=== PATIENT | female | born 1975 | race Hispanic/Latino ===

== ENCOUNTER 2017-07-21 08:23 | Inpatient (IN) | payer BC, OTHER ==
[2017-07-21 09:05] LABS: Mean Corpuscular Hemoglobin 29.3 pg (27.0-31.0); Mean Corpuscular Volume 88.7 fl (81.0-99.0); Mean Platelet Volume 6.7 fL (7.4-10.4); Platelet Count 466 thou/uL (130-400); RBC Distribution Width 11.9 % (11.5-14.5); Red Blood Cell (RBC) Count 4.43 mill/uL (4.20-5.40); White Blood Cell (WBC) Count 20.9 thou/uL (4.8-10.8)
[2017-07-21] MEDS ORDERED: Morphine 4 MG/ML VIAL ONE ×2 (09:11→13:22)
[2017-07-21] MEDS ORDERED: Ondansetron ODT 8 MG TAB ONE (09:12)
[2017-07-21 09:25] LABS: ALT (SGPT) 31 U/L (8-55); AST (SGOT) 17 U/L (5-34); Albumin 4.2 g/dL (3.5-5.0); Alkaline Phosphatase 127 U/L (40-150); Anion Gap 15 mmol/L (10-20); BUN (Urea Nitrogen) 6 mg/dL (7.0-18.7); Bilirubin, Total 1.2 mg/dL (0.2-1.2); Calc. Creatinine Clearance 0 mL/min (70-130); Calcium 9.8 mg/dL (7.8-10.44); Carbon Dioxide 22 mmol/L (22-29); Chloride 103 mmol/L (98-107); Estimated GFR-MDRD Greater than 90; Globulin 4.5 g/dL (2.4-3.5); Glucose 104 mg/dL (70-105); Lipase 14 U/L (8-78); Potassium 4.1 mmol/L (3.5-5.1); Protein, Total 8.7 g/dL (6.0-8.3); Sodium 136 mmol/L (136-145)
[2017-07-21 09:36] LABS: Lymphocytes 8 % (21-51); MDiff Complete? YES; Monocytes 2 % (0-10); Neutrophil 90 % (42-75)
[2017-07-21 10:01] LABS: Bilirubin Negative (Negative); Blood, Urine Small (Negative); Clarity CLEAR (Clear); Glucose, Urine (Dipstick) Negative (Negative); Leukocyte Negative (Negative); Nitrite Negative (Negative); Protein, Urine (Dipstick) 30 mg/dL (Neg-Trace)
[2017-07-21 10:03] LABS: Bacteria/HPF None Seen HPF (None Seen); Hyaline Casts/LPF 0-3 HYALINE CAST LPF (0-3 Hyaline); Squamous Epithelial None Seen HPF (0-3); WBC/HPF None Seen HPF (0-3)
[2017-07-21 10:04] LABS: Pregnancy Test - Urine (BHCG) Negative (Negative); Pregu Control Background? CLEAR/WHITE (CLR/WHITE); Pregu Control Bar Appear? YES (CONTROL BAR); Specific Gravity 1.005 (1.002-1.036); Specific Gravity, Urine 1.005 (1.002-1.036)
--- NOTE | 2017-07-21 12:08 | CT ---
CT OF ABDOMEN AND PELVIS: DATE: 07/21/17. COMPARISON: None. HISTORY: Abdominal pain, epigastric pain. TECHNIQUE: Serial axial CT imaging at 5 mm intervals from the lung bases through the pubic symphysis with IV con trast. Coronal reformatted imaging obtained. FINDINGS: Imaged lung bases are unremarkable. No free intraperitoneal air is noted. There are subtle hypodense lesions within the liver, including a subtle 8-9 mm lesion on axial image 16 within the ventral aspect of the left lobe and a tiny hypodense left hepatic lobe lesion on image 15 measuring 6 mm. These lesions are too small to characterize. The spleen and gallbladder appear g rossly unremarkable aside from a nonspecific hypodense anterior splenic lesion measuring in the 9 mm range, also too small to characterize, likely representing a small cyst. Pancreas, adrenal glands, and left kidney are unremarkable. The right kidney contains a hypodense le derek in the posterolateral mid pole region measuring 3 cm, with Hounsfield units of 52. This could r epresent a complex cyst or a solid renal mass. There is small volume free fluid in the pelvic cul-de-sac. There is no evidence for bowel obstructio n. Evaluation of the bowel is limited on the basis of lack of contrast media. There is a complex tubular hypodense lesion which appears to emanate from the cecal apex and extend i nto the right hemipelvis inseparable from the region of the right adnexa/right ovary. No normal appe ndix is visualized. This complex hypodense tubular lesion measures at least 5 cm x 3.8 cm x 5 cm. The vascular structures of the abdomen/pelvis demonstrate no acute abnormality. Multiple small nodes are seen in the right lower quadrant mesentery. No acute osseous abnormality. IMPRESSION: 1. Complex hypoechoic lesion in the right lower quadrant. This is inseparable from the cecal apex a s well as the region of the right ovary/adnexa. This likely represents appendicitis with perforation and associated abscess. Abscess associated with pelvic inflammatory disease is a possibility. Surg ical consultation advised. 2. Hypodense hepatic and splenic lesions, too small to characterize. 3. Hypodense lesion within the right kidney, not consistent with a cyst. A followup renal ultrasoun d and/or CT examination with and without IV contrast is advised. Results called to Dr. Wong at 10:30 p.m. 07/21/17. CODE CR POS: [facility]
--- NOTE | 2017-07-21 13:09 | ULT ---
PELVIC ULTRASOUND: DATE: 07/21/17. HISTORY: Epigastric pain, complex hypodense right lower quadrant mass identified on recent CT examination. TECHNIQUE: Multiplanar, li scale sonographic imaging of the pelvis obtained with transabdominal and endovagina l imaging. The ovaries are assessed with color flow and spectral analysis. FINDINGS: Uterus measures 7.7 x 5.8 x 3.7 cm with a normal 3 mm endometrial stripe. Right ovary measures 2.9 x 2.9 x 3.7 cm and the left ovary measures 1.9 x 1.4 x 2.0 cm. Blood flow is documented within both o varies. There is moderate volume free fluid in the pelvic cul-de-sac. There is a posterior hypoechoic 7 x 8 mm lesion within the uterine body suggesting a small fibroid. There is a complex heterogeneously hypoechoic mass adjacent to the right ovary measuring at least 5.5 x 0.4 cm. This represents the complex heterogeneously hypodense lesion within this region on recent CT. It is nonspecific. IMPRESSION: Complex heterogeneously hypoechoic mass in the right adnexal region measuring 5.5 x 4.0 cm. This rep resents the abnormality seen on recent CT. This could represent abscess/phlegmon associated with per forated appendicitis. Tubo-ovarian abscess or neoplastic adnexal mass is less likely. Clinical magalie elation is essential. Recommend correlation with quantitative beta HCG to exclude that this is related to ectopic . CODE T POS: [facility]
[2017-07-21] MEDS ORDERED: ISOVUE-370 76%-LOCM 1 ML ONE (14:11)
[2017-07-21] MEDS ORDERED: Ondansetron HCl/PF 4 MG/2 ML Vial IVP PRN (14:20)
[2017-07-21] MEDS ORDERED: Doxycycline 100 MG CAP PO SCH (15:00)
[2017-07-21 17:43] VITALS: BMI 28.3
[2017-07-21] MEDS: Lactated Ringer's 1,000 ML IV SCH (17:44)
--- NOTE | 2017-07-21 17:45 | CON ---
DATE OF CONSULTATION: 07/21/2017 REFERRING PHYSICIAN: Dr. Bush, ER physician. CHIEF COMPLAINT: Abdominal pain. HISTORY OF PRESENT ILLNESS: The patient is a 42-year-old G2, P2 female who is presenting to the ER today with epigastric and right lower quadrant pain since x6 days, a 2-day history of subjective fevers and a 4-day history of anorexia. The patient reports that she began having a supraumbilical/epigastric pain Saturday night, prompting a visit to her physician on Saturday where she was diagnosed with possible gastritis versus early appendicitis. She was given medication that she reports helped her. She felt like it helped her for a couple days and then began having stronger abdominal pains and return back to her physician on where she was given medication for constipation which she reports had been present for nearly a week and was given instructions to go the emergency room if she continues to have pain. The patient reports that she has not had an appetite since , has had no desire to eat. Has had fevers at night with what sounds like rigors and sweats, though no objective temperature was taken. The patient denies any history of sexually transmitted infections. She has had one sexual partner her entire life and is in a stable healthy safe monogamous relationship. She has no concerns that her partner is unfaithful and she has not had other partners. The patient denies any history of other pelvic infections apart from what sounds like bacterial vaginosis many years ago that she would get in concurrence with her periods. Patient emphasized that the pain began in the epigastric region/super umbilical and seemed to migrate to that right lower quadrant. She denies any pain beginning in her pelvic region. Her last menstrual period was on 07/16/2017 couple days after her epigastric pain started and does report that her bleeding was less than expected, though she does admit her periods are irregular and did not come the same time every month. Imaging was obtained in the emergency room with the patient prior to my evaluation. A CT scan showed a complex hypoechoic lesion in the right lower quadrant inseparable from the cecal appendix and the region of the right ovary and adnexa that may represent appendicitis with perforation or possibly abscess associated with PID. Ultrasound was performed also and demonstrates the same complex heterogeneous hypoechoic mass in the right adnexa that could represent abscess phlegmon associated with perforated appendicitis or tubo-ovarian abscess. The patient today reports nausea without vomiting, anorexia, this right lower quadrant pain. PAST MEDICAL HISTORY: History of hyperlipidemia. PAST SURGICAL HISTORY: She has had prior x1. SOCIAL HISTORY: Denies drug, alcohol or tobacco use. MEDICATIONS: She is on Nexium, recently began for suspected gastritis and MiraLax for episodic constipation. ALLERGIES: No known drug allergies. REVIEW OF SYSTEMS: Again, patient reports fever at home. Denies headache, chest pain, shortness of breath. Has nausea without vomiting. Has abdominal pain. Denies foul vaginal discharge or bleeding and other pertinent in the HPI. PHYSICAL EXAMINATION: VITAL SIGNS: Blood pressure is 139/85, pulse of 99, respiratory rate is 16, temperature 98.2. The pain is 7/10, satting 98% on room air. GENERAL: She appears to be in no acute distress. She is alert and oriented, cooperative and pleasant to interact with. HEAD: Normocephalic, atraumatic. LUNGS: Clear to auscultation bilaterally. HEART: Regular rate and rhythm. ABDOMEN: Soft but it is tender to palpation in the mid to right lower quadrants. She has pain radiating to the right with left lower quadrant palpation. EXTREMITIES: Nontender, nonedematous. PELVIC: Vulva is without mass lesions or erythema. Vaginal exam by speculum does not demonstrate any purulent discharge. Cervix appears to be normal with closed os and mucousy. Clear mucousy discharge from the external os. On bimanual exam, patient has tenderness on the right lower quadrant. She has no tenderness to light palpation to the cervix, deep palpation of the cervix and uterus. The patient is tender midline and to the right. LABORATORY DATA: CBC shows a white count of 20.9, hemoglobin of 13.2, hematocrit 39.3, platelets of 466,000, neutrophil percentage at 90. Sodium 136 , potassium 4.1, chloride 103, BUN is 6, creatinine 0.66, total bilirubin of 1.2 , AST of 17, ALT of 31, lipase of 14. Urine shows a specific gravity of 1.005 with trace ketones, a pH of 8 with blood. ASSESSMENT: The patient is a 42-year-old female with right lower quadrant pain for the last week with a differential of appendicitis versus TOA. Patient does not have any red flags pointing to PID or TOA on history as the patient is in a longstanding monogamous relationship, has never had any history of infectious process of that nature. Denies explicitly gonorrhea and chlamydia and other like pelvic infections. Patient's history is suggestive of appendicitis with a supraumbilical epigastric pain being the onset of her symptoms with now anorexia , subjective fevers and this worsening right lower quadrant tenderness. General Surgery has just called me who has also evaluated the patient and does not believe the patient is a surgical candidate at this time given the longstanding presence of these symptoms. We will be admitting this patient and currently following her. She will be placed on Zosyn and doxycycline for anaerobic coverage and will be reimaged in a couple days. If the patient acutely worsens the need for surgery can be reassessed. If she improves clinically, we will continue antibiotics as indicated. Thanks to General surgery for their assistance. SHEA
[2017-07-21] MEDS: Piperacillin/Tazobactam 3.375 GM in Sodium Chloride 0.9% 100 ML IVPB SCH (18:09)
[2017-07-21] MEDS: Acetaminophen 1,000 MG in Premix Bag 1 BAG IVPB PRN (20:50)
[2017-07-21] MEDS: Doxycycline 100 MG CAP PO SCH (20:50)
[2017-07-21] MEDS: Morphine 4 MG/ML VIAL SLOW IVP PRN (20:50)
[2017-07-22] MEDS: Lactated Ringer's 1,000 ML IV SCH ×4 (00:37→20:20)
[2017-07-22] MEDS: Piperacillin/Tazobactam 3.375 GM in Sodium Chloride 0.9% 100 ML IVPB SCH ×4 (00:37→18:25)
--- NOTE | 2017-07-22 00:52 | CON ---
DATE OF CONSULTATION: 07/21/2017 CHIEF COMPLAINT: Abdominal pain. HISTORY OF PRESENT ILLNESS: Ms. Gavin is a 42-year-old woman with a 1-week history of epigastric pain, radiating down her right side. She states that she came to the emergency room, because she was worried that she might have an ulcer. Her family tells me that she went to the doctor on Saturday of this week and again on Saturday, because of similar symptoms. It is unclear whether any lab work or im aging was done, but she was told to go to the ER if the pain did not get better due to concern for po ssible appendicitis. She has not had much of an appetite and has had some mild nausea, but no vomiti ng. She denies any fevers or chills. She has no history of pelvic infection or irregular periods. She was constipated last week and was given some laxatives to take. She had not had any bowel moveme nts since Saturday, but after taking a laxative yesterday, she had 3 bowel movements. She has not had any diarrhea or other GI issues. PAST MEDICAL HISTORY: Hyperlipidemia. FAMILY HISTORY: Hypertension and diabetes. SOCIAL HISTORY: She does not smoke, drink, or use illicit drugs. ALLERGIES: She has no known drug allergies. MEDICATIONS: She does not take any medications chronically. She was started on Nexium earlier this week for suspected gastritis and she did take MiraLax yesterday for constipation. PHYSICAL EXAMINATION: VITAL SIGNS: Temperature 98.8, respirations 16, heart rate 82, blood pressure 122/84, 96% saturated on room air. GENERAL: Reveals a healthy-appearing woman in no acute distress. She is not flushed or toxic in laney earance. She is not jaundiced or icteric. HEENT: Unremarkable. NECK: Supple, without lymphadenopathy or thyroid nodules. HEART: Regular in its rate and rhythm without murmurs, rubs, or gallops. LUNGS: Clear to auscultation bilaterally. ABDOMEN: Soft and nondistended. She is tender to palpation, more in the lower abdomen than the uppe r abdomen and more on the right than the left. No palpable masses or hernias. She does have some vo luntary guarding, but is not rigid. She has possible rebound tenderness, although somewhat difficult to elicit. EXTREMITIES: Warm and well perfused without edema. NEUROLOGIC: No focal deficits. PSYCHIATRIC: Alert, oriented, and appropriate. LABORATORY AND X-RAY FINDINGS: White count is elevated at 20,000, platelets are 466, hematocrit 39.3 . She does have a left shift with 90% neutrophils. Electrolytes are unremarkable. LFTs are normal. Urine shows a small amount of blood and trace ketones, 30 protein, but is otherwise clear. Urine p regnancy test is negative. CT images are reviewed and I agree with the written report. She has a co mplex phlegmonous mass in the right lower quadrant extending from the cecal cap to the right adnexa. It is not really separable from either structure and her appendix is not definitely seen. It appear s loculated. Pelvic ultrasound revealed basically the same findings. 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 The patient is clinically stable and not septic. She is not a surgical candidate for appendectomy, as this would require likel y a right colectomy and right oophorectomy and would carry significant risks for damage to other near by structures including bowel and ureter. If this is perforated appendicitis, it will likely continu e to mature into an abscess. Given its location, I doubt that it will be percutaneously drainable, b ut it could probably be drained laparoscopically once it is more defined. If this is a tubo-ovarian abscess, it may well respond to IV antibiotics. So, after talking with Dr. Montana of [facility], I pref er to try IV antibiotics first with close observation. If the patient's clinical condition deteriora saul, she will be taken to the operating room, but if she improves, then we can follow up with imaging in a few days. The patient and her family understand are in agreement with the care plan. All thei r questions were answered.
[2017-07-22] MEDS: Acetaminophen 1,000 MG in Premix Bag 1 BAG IVPB PRN ×3 (03:07→18:25)
[2017-07-22] MEDS: Morphine 4 MG/ML VIAL SLOW IVP PRN ×2 (03:07→12:39)
[2017-07-22 05:03] LABS: #Eosinphils 0.1 thou/uL (0.0-0.7); #Lymphocytes 1.1 thou/uL (1.20-3.40); #Monocytes 1.2 thou/uL (0.11-0.59); #Neutrophils 16.4 thou/uL (1.40-6.50); %Basophils 0.1 % (0.0-1.0); %Eosinophils 0.4 % (0.0-10.0); %Lymphocytes 5.7 % (21.0-51.0); %Monocytes 6.4 % (0.0-10.0); %Neutrophils 87.4 % (42.0-75.0); Hemoglobin 11.1 g/dL (12.0-16.0); Mean Corpuscular HGB CONC 33.2 g/dL (32.0-36.0); Mean Corpuscular Hemoglobin 29.5 pg (27.0-31.0); Mean Platelet Volume 6.5 fL (7.4-10.4); Platelet Count 404 thou/uL (130-400); RBC Distribution Width 11.9 % (11.5-14.5); Red Blood Cell (RBC) Count 3.75 mill/uL (4.20-5.40); White Blood Cell (WBC) Count 18.8 thou/uL (4.8-10.8)
[2017-07-22] MEDS: Doxycycline 100 MG CAP PO SCH ×2 (09:05→20:19)
--- NOTE | 2017-07-22 11:15 | PDOC.GSPN ---
Surgery Progress Note: Subj - Subjective Narrative: Patient feels better today. Her pain has improved although she feels a little bloated. Afebrile with normal vital signs. White count is about the same. It has gone from 20 down to 18 which is not a significant change. Her abdomen is soft and nondistended. She is still a little tender in the lower abdomen but less than yesterday. Assessment/plan: Pelvic abscess, chronic perforated appendicitis versus tubo- ovarian. Clinically she is stable to improved on IV antibiotics and not septic so we will continue with conservative management. Consider repeat CT tomorrow or the next day. Surgery Progress Note: Obj - Vital signs Vital signs: Vital Signs - Most Recent Temp Pulse Resp BP Pulse Ox 97.7 F 69 14 113/75 98 07/22/17 09:00 07/22/17 09:00 07/22/17 09:00 07/22/17 07:52 07/22/17 07:52 Surgery Progress Note: Results - Labs Result Diagrams: 07/22/17 04:43 07/21/17 08:46 Lab results: Laboratory Results - last 24 hr 07/22/17 04:43 WBC 18.8 H RBC 3.75 L Hgb 11.1 L Hct 33.4 L MCV 89.0 MCH 29.5 MCHC 33.2 RDW 11.9 Plt Count 404 H MPV 6.5 L Neutrophils % 87.4 H Lymphocytes % 5.7 L Monocytes % 6.4 Eosinophils % 0.4 Basophils % 0.1 Neutrophils # 16.4 H Lymphocytes # 1.1 L Monocytes # 1.2 H Eosinophils # 0.1 Basophils # 0.0
--- NOTE | 2017-07-22 13:19 | PRG ---
DATE OF SERVICE: 07/22/2017 SUBJECTIVE: The patient is feeling better this morning. She is tolerating clear liquids. OBJECTIVE: VITAL SIGNS: She has been afebrile since admission. Temperature 98.3, blood pressure 121/83, pulse 70, respirations 14. ABDOMEN: Her abdomen is nondistended. She is tender to deep palpation in the right lower quadrant. ASSESSMENT: Chronic appendicitis versus tubo-ovarian abscess less likely. PLAN: I agree with Dr. Dong's plan to continue Zosyn and doxycycline and observe for clinical imp rovement. She is scheduled to be imaged in the next day or two to reevaluate her abscess. I did spe ak with the patient regarding this plan using the interpretation line and all questions are answered.
[2017-07-22] MEDS: Docusate 100 MG CAP PO SCH (20:19)
[2017-07-23] MEDS: Piperacillin/Tazobactam 3.375 GM in Sodium Chloride 0.9% 100 ML IVPB SCH ×4 (01:01→18:36)
[2017-07-23] MEDS ORDERED: Acetaminophen 1,000 MG in Premix Bag 1 BAG IVPB SCH (03:45)
[2017-07-23] MEDS: Lactated Ringer's 1,000 ML IV SCH ×3 (07:32→18:35)
[2017-07-23] MEDS: Docusate 100 MG CAP PO SCH ×2 (09:09→20:30)
[2017-07-23] MEDS: Morphine 4 MG/ML VIAL SLOW IVP PRN (09:09)
[2017-07-23] MEDS: Doxycycline 100 MG CAP PO SCH ×2 (09:09→20:31)
[2017-07-23] MEDS ORDERED: traMADol HCl 50 MG TAB PO PRN ×2 (09:20)
[2017-07-23 11:02] LABS: #Eosinphils 0.1 thou/uL (0.0-0.7); #Lymphocytes 2.3 thou/uL (1.20-3.40); #Monocytes 0.9 thou/uL (0.11-0.59); #Neutrophils 13.1 thou/uL (1.40-6.50); %Basophils 0.2 % (0.0-1.0); %Eosinophils 0.5 % (0.0-10.0); %Lymphocytes 14.1 % (21.0-51.0); %Monocytes 5.2 % (0.0-10.0); Hemoglobin 12.2 g/dL (12.0-16.0); Mean Corpuscular Hemoglobin 28.6 pg (27.0-31.0); Mean Corpuscular Volume 89.5 fl (81.0-99.0); Mean Platelet Volume 6.5 fL (7.4-10.4); Platelet Count 462 thou/uL (130-400); RBC Distribution Width 12.2 % (11.5-14.5); Red Blood Cell (RBC) Count 4.26 mill/uL (4.20-5.40); White Blood Cell (WBC) Count 16.4 thou/uL (4.8-10.8)
[2017-07-23] MEDS ORDERED: ISOVUE-370 76%-LOCM 1 ML ONE (11:02)
[2017-07-23 11:26] LABS: Anion Gap 12 mmol/L (10-20); BUN (Urea Nitrogen) 4 mg/dL (7.0-18.7); Calc. Creatinine Clearance 133 mL/min (70-130); Calcium 8.8 mg/dL (7.8-10.44); Carbon Dioxide 24 mmol/L (22-29); Chloride 105 mmol/L (98-107); Estimated GFR-MDRD Greater than 90; Glucose 98 mg/dL (70-105); Potassium 3.9 mmol/L (3.5-5.1); Sodium 137 mmol/L (136-145)
[2017-07-23] MEDS: Acetaminophen 1,000 MG in Premix Bag 1 BAG IVPB SCH ×2 (12:00→17:49)
--- NOTE | 2017-07-23 12:58 | PDOC.GSPN ---
Surgery Progress Note: Subj - Subjective Narrative: Pain is worse this afternoon. Hurts to walk TTP BLQ> epig/BUQ, no guarding/rigidity WBC slightly down, Afebrile w normal vitals A/P) Appendiceal abscess vs TOA. Labs slightly better but pt c/o more pain. Will repeat CT. Will likely need laparoscopic drainage. NPO after CT. Surgery Progress Note: Obj - Vital signs Vital signs: Vital Signs - Most Recent Temp Pulse Resp BP Pulse Ox 98.2 F 85 15 97/67 95 07/23/17 11:47 07/23/17 11:47 07/23/17 11:47 07/23/17 11:47 07/23/17 11:47 Surgery Progress Note: Results - Labs Result Diagrams: 07/23/17 10:48 07/23/17 10:48 Lab results: Laboratory Results - last 24 hr 07/23/17 07/23/17 10:48 10:48 WBC 16.4 H RBC 4.26 Hgb 12.2 Hct 38.1 MCV 89.5 MCH 28.6 MCHC 32.0 RDW 12.2 Plt Count 462 H MPV 6.5 L Neutrophils % 80.0 H Lymphocytes % 14.1 L Monocytes % 5.2 Eosinophils % 0.5 Basophils % 0.2 Neutrophils # 13.1 H Lymphocytes # 2.3 Monocytes # 0.9 H Eosinophils # 0.1 Basophils # 0.0 Sodium 137 Potassium 3.9 Chloride 105 Carbon Dioxide 24 Anion Gap 12 BUN 4 L Creatinine 0.62 Estimated GFR (MDRD) Greater than 90 Glucose 98 Calcium 8.8
--- NOTE | 2017-07-23 16:51 | CT ---
CT ABDOMEN AND PELVIS WITH IV CONTRAST: 07/23/17 Multiple axial tomograms obtained through the abdomen and pelvis with IV enhancement. INDICATIONS: Right lower quadrant abscess. Appendiceal abscess versus tubo-ovarian abscess. Comparison made to CT of 07/21/17. FINDINGS: Lung bases clear. Liver again reveals two nonspecific low density foci, one in the left lobe and the other in the right lobe. These were described previously and are unchanged. The small cystic lesion i n the anterior spleen is also stable. The pancreas is unremarkable. The complex lesion involving the lateral right kidney is again noted. This lesion shows some internal enhancement and possible septati on and is suspicious requiring close followup. Small bowel loops are normal caliber proximally, but do show mild dilatation in the mid and distal sm all bowel. An inflammatory process right lower quadrant involving the cecum and terminal ileum again noted. There is low lying cecum which extends into the right adnexa as noted previously. This inflamm atory process appears to be producing inflammatory change in the terminal ileum with apparent luminal narrowing which appears to result in mild small bowel obstruction explaining the mildly dilated mid and distal small bowel loops. Inflammatory process in the right lower quadrant is again seen although the fluid dense regions within this process on the prior exam are smaller today. This appears most c onsistent with appendicitis and appendiceal abscess, although it does extend to the adnexa and tubo-o varian etiology cannot be completely excluded although considered less likely. The uterus appears unr emarkable. IMPRESSION: 1. Inflammatory process in the right lower quadrant again noted. Fluid dense areas have decrease d in size indicating interval improvement. There is now more of a phlegmonous inflammatory process no nicole, although some areas of low attenuation remain. This does involve the terminal ileum and there is probable luminal narrowing and resulting small bowel obstruction resulting in small bowel dilatatio n of the mid and distal small bowel. 2. Complex lesion involving the right kidney again noted. 3. Nonspecific indeterminate low density lesions in the liver again noted. 4. Small splenic cystic lesion again noted and stable. POS: [facility]
[2017-07-23] MEDS: Lactinex Tablet PO SCH (20:31)
--- NOTE | 2017-07-23 23:13 | PRG ---
DATE OF SERVICE: 07/23/2017 This is hospital day #3 for admission for pelvic abscess. The patient has been on Zosyn and doxycycl ine since admission. General Surgery is following closely along with the [facility]. Patient was evaluated this morning by myself, at which time patient reports she was having quite a bit of pain. She has been tolerating her liquid diet. She has denied any fever, but is reporting so me diarrhea. PHYSICAL EXAMINATION: VITAL SIGNS: Today, over the last 24 hours, the patient has remained afebrile. Current temperature at the time of evaluation was 98.2, pulse of 81, respiratory rate 14, satting 98% on room air and a b lood pressure of 116/74. GENERAL: She appeared to be in no acute distress. She did appear uncomfortable. ABDOMEN: Tender, perhaps a little more tender than on initial exam at time of admission, particularl y on the left side where she previously had no tenderness. LABORATORY STUDIES: A CBC was ordered a little later in the morning by Dr. Dong and noted to have a significant decrease in her white count from time of admission; it is now 16.4 from 20,000. A CT scan was also performed later this afternoon per Dr. Dong, which reports interval improvement from the previous CT scan and is also demonstrating some inflammation at the terminal ileum and luminal n arrowing, resulting in a mild small-bowel obstruction. ASSESSMENT AND PLAN: Patient has been tolerating liquids throughout the day. She did report one epi sode of vomiting this morning after taking some pain medication. Dr. Dong's note from earlier tod ay indicated the possible need for surgery and was made n.p.o. at the time of the CT scan; however, t his evening, the patient has been placed back on a liquid diet and per nursing staff it has been comm unicated that Dr. Dong is holding off surgery at this time due to the overall improvement of Ms. Shy castillo and possible resolution with antibiotics alone on this inflammation and small bowel obstructi on. Patient this evening reports that she is feeling much better. She had not required much pain me dication. She is tolerating her liquids well. ASSESSMENT AND PLAN: The patient is a 42-year-old female with a pelvic abscess and a mild small brook l obstruction due to inflammation of the terminal ileum. Patient will continue on Zosyn and doxycycl ine, which appears to be helping Ms. Gavin improve from this pelvic infection evidenced by remaini ng afebrile and improving white count and improving pain. As patient is tolerating liquids well, I w ill be decreasing her IV fluids to 50 mL an hour, primarily just to keep the IV patent and open for I V antibiotics. The patient has x-rays scheduled in the morning. I will assume for further followup on the small-bowel obstruction seen on CT scan. Thank you to Dr. Dong for her assistance in the care of Ms. Gavin.
[2017-07-24] MEDS: Acetaminophen 1,000 MG in Premix Bag 1 BAG IVPB SCH ×4 (00:13→16:59)
[2017-07-24] MEDS: Piperacillin/Tazobactam 3.375 GM in Sodium Chloride 0.9% 100 ML IVPB SCH ×5 (00:14→23:46)
[2017-07-24] MEDS: Lactated Ringer's 1,000 ML IV SCH ×5 (00:15→23:46)
[2017-07-24 04:21] LABS: Chlamydia by PCR Not Detected (NotDetected); GC by PCR Not Detected (NotDetected)
[2017-07-24 05:19] LABS: Anion Gap 10 mmol/L (10-20); BUN (Urea Nitrogen) Less than 4 mg/dL (7.0-18.7); Calc. Creatinine Clearance 130 mL/min (70-130); Calcium 8.3 mg/dL (7.8-10.44); Carbon Dioxide 26 mmol/L (22-29); Chloride 106 mmol/L (98-107); Estimated GFR-MDRD Greater than 90; Glucose 90 mg/dL (70-105); Potassium 3.7 mmol/L (3.5-5.1); Sodium 138 mmol/L (136-145)
[2017-07-24 05:20] LABS: #Eosinphils 0.2 thou/uL (0.0-0.7); #Lymphocytes 1.8 thou/uL (1.20-3.40); #Monocytes 0.6 thou/uL (0.11-0.59); #Neutrophils 6.4 thou/uL (1.40-6.50); %Basophils 0.3 % (0.0-1.0); %Eosinophils 2.4 % (0.0-10.0); %Lymphocytes 20.3 % (21.0-51.0); %Monocytes 6.2 % (0.0-10.0); %Neutrophils 70.8 % (42.0-75.0); Hemoglobin 10.7 g/dL (12.0-16.0); Mean Corpuscular HGB CONC 33.3 g/dL (32.0-36.0); Mean Corpuscular Volume 90.3 fl (81.0-99.0); Mean Platelet Volume 6.7 fL (7.4-10.4); Platelet Count 417 thou/uL (130-400); RBC Distribution Width 12.1 % (11.5-14.5); Red Blood Cell (RBC) Count 3.56 mill/uL (4.20-5.40); White Blood Cell (WBC) Count 9.1 thou/uL (4.8-10.8)
[2017-07-24] MEDS ORDERED: Docusate 100 MG CAP PO PRN (08:00)
--- NOTE | 2017-07-24 08:13 | PDOC.EVN ---
Event Note - Event Note Event Note: OBGYN Day 4 Admitted 07/21...pelvic abscess Clinically improved. case reviewed with Dr Montana this AM, as I assumed call. Care mainly per Gen Surgery This AM...WBC at 9-10 Meds: Benjamin/Olaf Follow with Dr Dong
[2017-07-24] MEDS: Doxycycline 100 MG CAP PO SCH ×2 (08:25→20:55)
[2017-07-24] MEDS: Lactinex Tablet PO SCH ×2 (08:25→20:55)
--- NOTE | 2017-07-24 10:26 | RAD ---
ABDOMEN TWO VIEWS: HISTORY: Abdominal pain. Question small bowel obstruction. CORRELATION: CT from 07/23/2017. FINDINGS: Scattered stool and gas are seen in the colon. There are gas-filled, dilated loops of small bowel se en in the mid abdomen. These do exhibit differential air-fluid levels on the upright study, and thes e findings would indicate partial small bowel obstruction. No free air identified on the upright vie w. IMPRESSION: Gas-filled dilated loops of small bowel, which exhibit differential air-fluid levels on the upright s tudy. There is scattered stool and gas seen in the colon. POS: [facility]
--- NOTE | 2017-07-24 14:22 | PDOC.GSPN ---
Surgery Progress Note: Subj - Subjective Narrative: Patient feels much better today. She denies nausea and states that her appetite has returned. She is passing flatus and having bowel movements. Afebrile with normal vital signs. White count has declined. CT last night showed improvement in the inflammatory process which is now looking more phlegmon at this. She does have some reactive inflammation of the terminal ileum and some dilation of the small bowel proximal to this worrisome for partial small bowel traction. Follow-up KUB this morning still shows some dilated loops of bowel but contrast has passed into the colon. She is less tender to palpation in the lower abdomen. Assessment/plan: Clinically improving on antibiotics. Partial small bowel obstruction seen on CT scan but tolerating clear liquids. We will continue to follow this with x-ray and exam. No drainable discrete abscess. I expect that the partial extraction will improve as the antibiotics continued to work, but if she worsens we would try bowel decompression and nothing by mouth status for a few days. Surgical intervention would likely necessitate resection of the phlegmon and right colon and right ovary so we will try to avoid that. Surgery Progress Note: Obj - Vital signs Vital signs: Vital Signs - Most Recent Temp Pulse Resp BP Pulse Ox 97.8 F 64 14 104/70 97 07/24/17 12:00 07/24/17 12:00 07/24/17 12:00 07/24/17 12:00 07/24/17 12:00 Surgery Progress Note: Results - Labs Result Diagrams: 07/24/17 04:38 07/24/17 04:38 Lab results: Laboratory Results - last 24 hr 07/24/17 07/24/17 04:38 04:38 WBC 9.1 RBC 3.56 L Hgb 10.7 L Hct 32.1 L MCV 90.3 MCH 30.0 MCHC 33.3 RDW 12.1 Plt Count 417 H MPV 6.7 L Neutrophils % 70.8 Lymphocytes % 20.3 L Monocytes % 6.2 Eosinophils % 2.4 Basophils % 0.3 Neutrophils # 6.4 Lymphocytes # 1.8 Monocytes # 0.6 H Eosinophils # 0.2 Basophils # 0.0 Sodium 138 Potassium 3.7 Chloride 106 Carbon Dioxide 26 Anion Gap 10 BUN Less than 4 L Creatinine 0.63 Estimated GFR (MDRD) Greater than 90 Glucose 90 Calcium 8.3
--- NOTE | 2017-07-24 17:43 | PDOC.EVN ---
Event Note - Event Note Event Note: @1005 Location: 3331 Patient seen at bedside. Antibiotics seem to be resolving the inflammatory process. patient clinically improved. Dr hudson's note and plan of care to continue medical intervention has been reviewed. Will follow.
[2017-07-25] MEDS: Piperacillin/Tazobactam 3.375 GM in Sodium Chloride 0.9% 100 ML IVPB SCH ×3 (06:02→18:14)
--- NOTE | 2017-07-25 06:49 | PDOC.EVN ---
Event Note - Event Note Event Note: OBGYN Note HD #5 Patient with no new issues Vitals reviewed..afebrile. Nonew labs Pelvic abscess responding to IV Zosyn/Doxy. Primary medical care as [er Dr Dong (Gen Surg).
[2017-07-25] MEDS: Lactated Ringer's 1,000 ML IV SCH ×4 (07:20→20:25)
[2017-07-25] MEDS: Doxycycline 100 MG CAP PO SCH ×2 (08:51→20:18)
[2017-07-25] MEDS: Lactinex Tablet PO SCH ×2 (08:51→20:18)
--- NOTE | 2017-07-25 12:16 | RAD ---
ABDOMEN 2 VIEWS: HISTORY: Partial small bowel obstruction. COMPARISON: Radiograph of the prior day. FINDINGS: Mildly distended large bowel. A few air fluid levels in the left upper quadrant of the abdomen. There is some contrast in which may be out of the confines of the ascending colon. IMPRESSION: Contrast possibly outside the confines of the ascending colon may be within a collection. POS: [facility]
--- NOTE | 2017-07-25 14:01 | PDOC.GSPN ---
Surgery Progress Note: Subj - Subjective Narrative: Patient feels much better today. She states she has no pain. Her appetite is normal and she is tolerating clear liquids without nausea or bloating. Has had bowel movements and passed gas. Abdomen is soft with very minimal lower abdominal tenderness. No rigidity rebound or guarding. KUB showed improvement in small bowel dilation and now looks pretty normal. Pelvic abscess of unclear etiology. This could be appendiceal or ovarian in origin but is responding to antibiotics. She had mildly symptomatic partial small bowel obstruction which appears to have resolved. We can advance her diet and if she tolerates this she can be switched to oral antibiotics and likely discharged home to complete 2 weeks treatment. She can follow up with me as an outpatient. I'm going to be out of town tomorrow and the following week but Dr. Hewitt and Dr. Khoury are going to be covering in my absence. Surgery Progress Note: Obj - Vital signs Vital signs: Vital Signs - Most Recent Temp Pulse Resp BP Pulse Ox 97.9 F 64 14 116/79 99 07/25/17 11:12 07/25/17 11:12 07/25/17 11:12 07/25/17 11:12 07/25/17 11:12 Surgery Progress Note: Results - Labs Result Diagrams: 07/24/17 04:38 07/24/17 04:38
[2017-07-26] MEDS: Piperacillin/Tazobactam 3.375 GM in Sodium Chloride 0.9% 100 ML IVPB SCH ×2 (00:25→05:59)
--- NOTE | 2017-07-26 06:45 | PDOC.EVN ---
Event Note - Event Note Event Note: Resting comfortably. No c/o. VSS Remains AF. Abdomen is soft and NT. No guarding or rebound. Dr. Dong's note from yesterday reviewed; plan is to advance diet and switch to PO ABX.
[2017-07-26] MEDS: Lactated Ringer's 1,000 ML IV SCH (07:46)
[2017-07-26] MEDS ORDERED: metroNIDAZOLE 500 MG TAB PO SCH (09:00)
--- NOTE | 2017-07-26 09:02 | PDOC.EVN ---
Event Note - Event Note Event Note: OBGYN: Call assumed this AM from DR Purcell. Plan reviewed with him. As per Dr Dong ( Gen Surgery), plan is to change to oral ABX and slowly advance diet. Still improved. DC Zosyn...change to Flagyl. Meds will be flagyl and Doxy po today. Prepare for DC. Dr Ramirez is coveraging for [facility] this wekend.
[2017-07-26] MEDS: Lactinex Tablet PO SCH (09:47)
[2017-07-26] MEDS: Doxycycline 100 MG CAP PO SCH (09:47)
[2017-07-26 15:33] VITALS: BP 117/74; TEMP 97.7
--- NOTE | 2017-07-26 16:45 | PDOC.EVN ---
Event Note - Event Note Event Note: OBGYN DISCHARGE NOTE Admission: 07/21/17 Discharge: 07/26/17 LOS: 5 days Diagnosis: Pelvic abscess Services [facility] ([facility] Hospital course: In brief, this patient was admitted by the OBGYN Hospitalist team for suspected pelvic infection. During the initial evaluation, the working diagnosis progressed to possible appendiceal related abcess. General Surgery ([facility]) was primary physician for care with ObGyn being secondary. Initial small bowel obstruction resolved, as did other symptoms, with broad spectrum antibiotics. IV antibiotics were zosyn and oral doxy. She was tolerating regular diet by day of discharge. I evaluated the patient on the morning of day of discharge and found her to be clinically improved with labs returned to normal. Dr Ramirez cleared the patient for discharge in the afternoon (approx 1630) on . I will send her home to continue 7 days of oral doxy and flagyl. She will follow up with general surgery as directed by then. 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
--- NOTE | 2017-07-26 16:54 | PRG ---
DATE OF SERVICE: 07/26/2017 SUBJECTIVE: This is hospital day #5 of Ms. Gavin. She is tolerating a regular diet. Bowels are moving well. She notes mild right-sided abdominal discomfort. She denies vomiting. PHYSICAL EXAMINATION: VITAL SIGNS: She is afebrile, pulse 69, blood pressure 117/74. LUNGS: Clear to auscultation. ABDOMEN: Soft with no focal tenderness and normoactive bowel sounds. LABORATORY STUDIES: Her CBC was essentially normal 2 days ago with a white blood cell count of 9.1, hemoglobin of 10.7. ASSESSMENT AND PLAN: Patient with resolved/resolving tubo-ovarian abscess versus appendiceal abscess . Either way, this has resolved appropriately with a course of IV antibiotics. She is appropriate f or discharge home at this time. Dr. Rod has already written prescriptions for doxycycline and Flag yl and I agree that these are appropriate antibiotics. She does not appear to have any significant d iscomfort, does not require any pain medication for discharge at this time. She may eat a regular di et, ambulate frequently, and take her antibiotics and follow up with Dr. Dong in 10 days.
--- NOTE | 2017-07-26 16:54 | PDOC.EVN ---
Event Note - Event Note Event Note: Referral to [facility] completed and faxed
== END 2017-07-26 17:27 | disposition home or self-care (01) | DRG 758 ==
LOC: ERS 08:23 → SURG A 14:59
PROVIDERS: ADMIT Obstetrics & Gynecology; ATTEND Obstetrics & Gynecology
DX: N73.9 Female pelvic inflammatory disease, unspecified (principal); K56.609 Unspecified intestinal obstruction, unspecified as to partial versus complete obstruction; E78.5 Hyperlipidemia, unspecified; K36 Other appendicitis
CPT/HCPCS: 36415; 74019; 74177; 76856; 80048; 80053; 81003; 81015; 81025; 83690; 85025; 87480; 87491; 87510; 87591; 87660; 93005; 96365; 96375; 96376; J0131; J2270; J2405; J2543; J7050

== ENCOUNTER 2017-09-09 13:48 | Outpatient (CLI) | payer BC ==
[~2017-09-09 13:48] MED LIST: Iopamidol 370 76% 100 ML VIAL ONE
== END 2017-09-09 13:49 | disposition home or self-care (01) ==
LOC: BICCT 13:48
PROVIDERS: ATTEND Surgery
DX: R10.31 Right lower quadrant pain (principal); N28.1 Cyst of kidney, acquired; K38.8 Other specified diseases of appendix
CPT/HCPCS: 74177

== ENCOUNTER 2017-09-10 12:18 | Outpatient (CLI) | payer BC ==
[2017-09-10 13:45] LABS: #Eosinphils 0.2 thou/uL (0.0-0.7); #Lymphocytes 2.7 thou/uL (1.20-3.40); #Monocytes 0.4 thou/uL (0.11-0.59); #Neutrophils 5.5 thou/uL (1.40-6.50); %Basophils 0.4 % (0.0-1.0); %Eosinophils 2.1 % (0.0-10.0); %Lymphocytes 30.4 % (21.0-51.0); %Monocytes 4.4 % (0.0-10.0); %Neutrophils 62.6 % (42.0-75.0); Hemoglobin 13.9 g/dL (12.0-16.0); Mean Corpuscular HGB CONC 35.2 g/dL (32.0-36.0); Mean Corpuscular Hemoglobin 30.8 pg (27.0-31.0); Mean Corpuscular Volume 87.7 fL (78.0-98.0); Mean Platelet Volume 7.5 fL (7.4-10.4); Platelet Count 291 thou/uL (130-400); RBC Distribution Width 13.3 % (11.5-14.5); White Blood Cell (WBC) Count 8.8 thou/uL (4.8-10.8)
[2017-09-10 14:02] LABS: ALT (SGPT) 28 U/L (8-55); AST (SGOT) 21 U/L (5-34); Albumin 4.6 g/dL (3.5-5.0); Alkaline Phosphatase 67 U/L (40-150); Anion Gap 14 mmol/L (10-20); BUN (Urea Nitrogen) 8 mg/dL (7.0-18.7); Calc. Creatinine Clearance 0 mL/min (70-130); Calcium 9.3 mg/dL (7.8-10.44); Carbon Dioxide 21 mmol/L (22-29); Chloride 107 mmol/L (98-107); Estimated GFR-MDRD Greater than 90; Globulin 3.5 g/dL (2.4-3.5); Glucose 77 mg/dL (70-105); Potassium 4.4 mmol/L (3.5-5.1); Protein, Total 8.1 g/dL (6.0-8.3); Sodium 138 mmol/L (136-145)
[2017-09-10 14:12] LABS: BHCG - Serum Negative (NEGATIVE); Pregs Control Background? CLEAR/WHITE (CLR/WHITE); Pregs Control Bar Appear? YES (CONTROL BAR)
== END 2017-09-10 12:19 | disposition home or self-care (01) ==
LOC: LABBT 12:18
PROVIDERS: ATTEND Surgery
DX: Z01.812 Encounter for preprocedural laboratory examination (principal); K37 Unspecified appendicitis
CPT/HCPCS: 80053; 84703; 85025

== ENCOUNTER 2017-09-11 07:24 | Day surgery (SDC) | payer BC ==
[2017-09-10 12:39] VITALS: BMI 30.2
[2017-09-11] MEDS ORDERED: MEROPENEM 1 GM/50 ML 1 GM in Premix Bag 1 BAG IVPB SCH (08:00)
[2017-09-11] MEDS ORDERED: Bupivacaine HCl 0.25%/Epi 0.0005/PF 10 ML VIAL FS ONE ×3 (08:15→08:16)
[2017-09-11] MEDS ORDERED: Midazolam HCl 2 mg/2 ml Vial ONE (09:16)
[2017-09-11] MEDS ORDERED: Fentanyl 100 MCG/2 ML VIAL ONE ×2 (09:16→11:24)
[2017-09-11] MEDS ORDERED: Meperidine HCl/PF 25 MG/ML VIAL ONE (11:19)
[2017-09-11] MEDS ORDERED: HYDROcodone/Acetaminophen 5/325 mg Tablet ONE (13:19)
--- NOTE | 2017-09-13 18:45 | PDOC.OP ---
Operative Note - Operative Note Operative Note: PROCEDURE: Laparoscopic appendectomy SURGEON: Marleni Dong M.D. DATE OF PROCEDURE: 09/11/2017 PREOPERATIVE DIAGNOSIS: Appendicitis POSTOPERATIVE DIAGNOSIS: Appendicitis HISTORY: Patient with large complex pelvic abscess due to appendicitis which resolved with antibiotics. She had recurrent right-sided abdominal pain and CT showed a persistently enlarged and inflamed appearing appendix. Appendectomy was recommended FINDINGS: Enlarged and inflamed appendix with filmy adhesions to the terminal ileum, abdominal sidewall, and right ovary. DESCRIPTION OF PROCEDURE: After informed consent was obtained and appropriate antibiotics continued, the patient was taken to the operating room and placed in the supine position and general endotracheal anesthesia was administered. The bladder was decompressed with a Corcoran catheter and the abdomen was prepped and draped in the standard sterile fashion. Local anesthesia was infused to the skin and subcutaneous tissues superior to the umbilicus. A transverse skin incision was made and a Veress needle placed into the abdominal cavity and carbon dioxide gas insufflated without difficulty. Opening pressure was less than 5. Carbon dioxide gas was insufflated to an intra-abdominal pressure 15 and the patient tolerated this well. The Veress needle was withdrawn and a [place] port advanced under direct laparoscopic vision into the abdominal cavity. Two additional ports were placed in the suprapubic and left lateral abdomen under direct laparoscopic vision after local anesthesia was infused at these sites. The appendix was identified and appeared inflamed but not perforated. This was adherent to the terminal ileum lateral sidewall. A plane was able to be developed bluntly as these adhesions were filmy in nature. The appendix was adherent to the right ovary as well but again these adhesions were able to be divided and the appendix was effected free of the right ovary and drawn up out of the pelvis. The appendix was grasped by the mesoappendix and elevated. The mesoappendix was then sequentially ligated and divided down to the base of the appendix, which was normal in appearance and was clearly seen to be at the confluence of the tenia. Two Endoloops were placed around the base of the appendix and the appendix was divided between these Endoloops, placed into an EndoCatch bag and drawn out through the suprapubic incision. The suprapubic trocar was then replaced and the operative site was easily irrigated to clear. The suprapubic trocar was removed and the fascia closed under direct laparoscopic vision with a 0 Vicryl suture on a GraNee needle with excellent technical result. The left lateral trocar was then removed and hemostasis verified. Carbon dioxide gas was desufflated through the umbilical trocar which was then removed. The skin incisions were irrigated and additional local anesthesia infused at each site. The skin was closed with 4-0 subcuticular Monocryl sutures and Dermabond dressings were placed. The patient was extubated and taken to the recovery room in good condition. Estimated blood loss was minimal. There were no complications. SPECIMEN: Appendix.
== END 2017-09-11 14:06 | disposition home or self-care (01) ==
LOC: SDC 07:24
PROVIDERS: ATTEND Surgery
PROC: 0DTJ4ZZ Resection of Appendix, Percutaneous Endoscopic Approach (ICD-10-PCS; principal; 2017-09-11)
DX: K35.3 Acute appendicitis with localized peritonitis (principal); E78.00 Pure hypercholesterolemia, unspecified; Z79.899 Other long term (current) drug therapy
CPT/HCPCS: 88304; 96374; 96375; J2175; J2185; J2250; J3010

== ENCOUNTER 2019-01-28 16:06 | Outpatient (CLI) | payer BC ==
--- NOTE | 2019-01-28 16:40 | MMO ---
Bilateral MAMMO Bilat Screen [facility]. CLINICAL HISTORY: Patient is 43 years old and is seen for screening. The patient has no family history of breast cancer. The patient has no personal history of cancer. VIEWS: The views performed were: bilateral craniocaudal with tomosynthesis and bilateral mediolateral oblique with tomosynthesis. This study has been interpreted with the assistance of computer-aided detection. MAMMOGRAM FINDINGS: There are scattered fibroglandular densities. There are no suspicious masses, suspicious calcifications, or new areas of architectural distortion. IMPRESSION: THERE IS NO MAMMOGRAPHIC EVIDENCE OF MALIGNANCY. A ROUTINE FOLLOW-UP MAMMOGRAM IN 1 YEAR IS RECOMMENDED. THE RESULTS OF THIS EXAM WERE SENT TO THE PATIENT. ACR BI-RADS Category 1 - Negative MAMMOGRAPHY NOTE: 1. A negative mammogram report should not delay a biopsy if a dominant of clinically suspicious mass is present. 2. Approximately 10% to 15% of breast cancers are not detected by mammography. 3. Adenosis and dense breasts may obscure an underlying neoplasm. Reported by: ROHIT ASHTON MD Electonically Signed: [id number]
== END 2019-01-28 16:07 | disposition home or self-care (01) ==
LOC: BICMAMMO 16:06
PROVIDERS: ATTEND Family Medicine
DX: Z12.31 Encounter for screening mammogram for malignant neoplasm of breast (principal)
CPT/HCPCS: 77063; 77067

== ENCOUNTER 2023-12-06 15:53 | Outpatient (CLI) | payer BC | END 2023-12-06 15:54 | disposition home or self-care (01) | LOC: BICMAMMO 15:53 | PROVIDERS: ATTEND Family Medicine | DX: Z12.31 Encounter for screening mammogram for malignant neoplasm of breast (principal) | CPT/HCPCS: 77063; 77067 ==